=== PATIENT | female | born 1955 | race Caucasian/White ===

== ENCOUNTER 2025-01-08 00:34 | Inpatient (IN) | payer SELFPAY ==
[~2025-01-08] VITALS: Ht 154.9 cm; Wt 91.4 kg
[2025-01-08] MEDS: MORPHINE SULFATE 2 MG/ML INJ (NOT FOR IM USE) IV ONE (01:15)
[2025-01-08 01:57] LABS: BASOPHILS % 1.1 % (0.0-2.0); EOSINOPHILS % 3.4 % (0.0-5.0); HEMATOCRIT. 41.9 % (36.0-48.0); LYMPHOCYTES % 24.2 % (20.0-50.0); MEAN CORPUSCULAR HEMOGLOBIN 30.1 pg (28.0-32.0); MEAN CORPUSCULAR HGB CONC 33.3 g/dL (31.0-37.0); MEAN CORPUSCULAR VOLUME 90.4 fL (81.0-99.0); MONOCYTES % 10.6 % (2.0-8.0); NEUTROPHILS % 60.7 % (40.0-76.0); PLATELET 186 x1000/uL (130-400); RED BLOOD CELL COUNT 4.64 mill/uL (4.2-5.4); RED CELL DISTRIBUTION WIDTH 16.2 % (11.6-14.6); WHITE BLOOD COUNT 6.2 x1000/uL (4.5-11.0)
[2025-01-08 01:59] LABS: CHLORIDE 106 mEq/L (98-107); POTASSIUM 3.8 mEq/L (3.5-5.1); SODIUM 142 mEq/L (136-145)
[2025-01-08 02:00] LABS: CARBON DIOXIDE 27 mEq/L (21-32)
[2025-01-08 02:01] LABS: CALCIUM 8.5 mg/dL (8.7-10.4)
[2025-01-08 02:05] LABS: CREATININE 0.9 mg/dL (0.6-1.0); GLUCOSE 104 mg/dL (70-105)
[2025-01-08 02:06] LABS: UREA NITROGEN BLOOD 27 mg/dL (9-23)
[2025-01-08 02:27] LABS: TROPONIN I HIGH SENSITIVITY < 4 ng/L (3.0-34)
[2025-01-08] MEDS: ONDANSETRON HCL 4MG/2ML INJ IV ONE (02:31)
[2025-01-08] MEDS: MORPHINE SULFATE 4 MG/ML INJ (FOR IV/IM USE) IV NR (02:32)
[2025-01-08 06:42] VITALS: BP 117/67; PULSE 55; RESP 18; TEMP 36.4
[2025-01-08] MEDS ORDERED: LOSA50TA41 PO ×2 (07:18→11:34)
[2025-01-08 08:47] VITALS: BP 103/60; PULSE 50; RESP 20; TEMP 37.5; O2SAT 97
[2025-01-08] MEDS ORDERED: ONDANSETRON HCL 4MG/2ML INJ IV PRN (09:15)
[2025-01-08] MEDS ORDERED: CLONIDINE 0.1MG TABLET PO PRN (09:15)
[2025-01-08] MEDS ORDERED: DOCUSATE SODIUM 100MG CAPSULE PO PRN (09:15)
[2025-01-08] MEDS ORDERED: ENOXAPARIN 40MG/0.4ML SYR SUBCUT SCH (09:15)
[2025-01-08] MEDS ORDERED: MAGNESIUM/ALUMINUM HYDROXIDE/SIMETHICONE 30ML UDC PO PRN (09:15)
[2025-01-08] MEDS ORDERED: IPRATROPIUM/ALBUTEROL 0.5-3(2.5)MG/3ML NEB HHN PRN (09:15)
[2025-01-08] MEDS ORDERED: GUAIFENESIN 200MG/10ML SUGAR FREE UDC PO PRN (09:15)
[2025-01-08] MEDS ORDERED: ACETAMINOPHEN 325MG TABLET PO PRN ×2 (09:15)
[2025-01-08] MEDS: THIAMINE HCL 100MG TABLET PO SCH (10:41)
[2025-01-08] MEDS: ENOXAPARIN 30MG/0.3ML SYR SUBCUT SCH (10:42)
[2025-01-08] MEDS ORDERED: DICL75TA5 PO (11:34)
[2025-01-08] MEDS ORDERED: TOPUD PO (11:34)
[2025-01-08 12:43] VITALS: BP 105/58; PULSE 57; RESP 20; TEMP 36.6; O2SAT 94
[2025-01-08 12:56] VITALS: BP 105/58; PULSE 57; TEMP 97.8; O2SAT 94
== END 2025-01-08 15:15 | disposition home or self-care (01) | DRG 144 ==
LOC: ER 00:34 → 7WST 03:59 → EDBEDREQ 04:02 → EDBEDREQTM 04:02 → ENRESERV 04:34
PROVIDERS: ADMIT Internal Medicine; ATTEND Internal Medicine
DX: S22.31XA Fracture of one rib, right side, initial encounter for closed fracture (principal); J84.9 Interstitial pulmonary disease, unspecified; I11.9 Hypertensive heart disease without heart failure; E11.9 Type 2 diabetes mellitus without complications; J44.9 Chronic obstructive pulmonary disease, unspecified; X58.XXXA Exposure to other specified factors, initial encounter; J98.4 Other disorders of lung; Z79.899 Other long term (current) drug therapy; Z99.81 Dependence on supplemental oxygen; Y93.89 Activity, other specified; Y92.89 Other specified places as the place of occurrence of the external cause; Y99.8 Other external cause status
CPT/HCPCS: 36415; 71045; 71250; 80048; 83880; 84484; 85025; 93005; 99285; J1650; J2270; J2405